=== PATIENT | male | born 2000 | race African-American/Black ===

== ENCOUNTER 2019-05-27 23:39 | Emergency (ER) | payer MEDICAID, OTHER ==
[~2019-05-27] VITALS: Ht 175.3 cm; Wt 70.3 kg
--- NOTE | 2019-05-27 23:50 | NUR ---
PT BIBSELF C/O SOB X1 DAY. +PRODUCTIVE COUGH, YELLOW SPUTUM HX OF ASTHMA, VSS TO ER BED 2 AWAITING MED EVAL
[2019-05-28] MEDS ORDERED: ALBUTEROL FS 2.5 MG/0.5 ML VIAL.NEB NEB ONE
[2019-05-28] MEDS ORDERED: ALBUTEROL FS 2.5 MG/0.5 ML VIAL.NEB ONE (00:06)
--- NOTE | 2019-05-28 00:24 | NUR ---
Patient discharged to home in stable condition. Written and verbal after care instructions given. Patient verbalizes understanding of instruction.
[2019-05-28 00:25] VITALS: BP 131/77
== END 2019-05-28 00:26 | disposition home or self-care (01) ==
LOC: ER 23:44
DX: J45.909 Unspecified asthma, uncomplicated (principal)

== ENCOUNTER 2019-08-27 08:08 | Emergency (ER) | payer MEDICAID ==
[~2019-08-27] VITALS: Ht 175.3 cm; Wt 68.0 kg
[2019-08-27] MEDS ORDERED: IPRATROPIUM NEB FS 0.5 MG/2.5 ML AMPUL.NEB ONE (08:20)
[2019-08-27] MEDS ORDERED: ALBUTEROL FS 2.5 MG/3 ML VIAL.NEB ONE (08:20)
--- NOTE | 2019-08-27 08:20 | NUR ---
patient Flash, from home, c/o sob x 2 hrs, Hx of asthma. On room air, connected to the monitor and pulse ox. kept comfortable, Will continue to monitor accordingly.
[2019-08-27] MEDS ORDERED: predniSONE 20 MG TABLET ONE (08:21)
--- NOTE | 2019-08-27 08:23 | NUR ---
RT at bedside for treatment.
[2019-08-27] MEDS ORDERED: ALBUTEROL FS 2.5 MG/3 ML VIAL.NEB NEB ONE (08:30)
[2019-08-27] MEDS ORDERED: IPRATROPIUM NEB FS 0.5 MG/2.5 ML AMPUL.NEB NEB ONE (08:30)
[2019-08-27] MEDS ORDERED: predniSONE 20 MG TABLET PO ONE (08:30)
[2019-08-27 09:25] VITALS: BP 105/56
--- NOTE | 2019-08-27 09:26 | NUR ---
Patient discharged to home in stable condition. Written and verbal after care instructions given. Patient verbalizes understanding of instruction.
== END 2019-08-27 09:26 | disposition home or self-care (01) ==
LOC: ER 08:15
DX: J45.909 Unspecified asthma, uncomplicated (principal)
CPT/HCPCS: 94640; 99283; J7512

== ENCOUNTER 2020-05-07 06:38 | Emergency (ER) | payer MEDICAID ==
[~2020-05-07] VITALS: Ht 175.3 cm; Wt 72.6 kg
--- NOTE | 2020-05-07 06:41 | NUR ---
BIBS FOR C/O "I THINK I HAVE SINUS INFECTION. MY LEFT EAR IS ITCHY" -H/A, -COUGH, - CONGESTION, - FEVER; pt to bed 6, -sob, nad noted, vss, pending md michael
--- NOTE | 2020-05-07 07:11 | NUR ---
called lab for covid swab
[2020-05-07] MEDS ORDERED: predniSONE 10 MG TABLET ONE (07:17)
[2020-05-07] MEDS ORDERED: predniSONE 20 MG TABLET ONE (07:17)
--- NOTE | 2020-05-07 07:19 | NUR ---
report given to callum chang for poonam
[2020-05-07] MEDS ORDERED: predniSONE 50 MG TABLET PO ONE (07:30)
--- NOTE | 2020-05-07 08:42 | NUR ---
Patient discharged to home in stable condition. Written and verbal after care instructions given. Patient verbalizes understanding of instruction.
[2020-05-07 08:46] VITALS: BP 130/74
== END 2020-05-07 08:47 | disposition home or self-care (01) ==
LOC: ER 06:40
DX: J45.909 Unspecified asthma, uncomplicated (principal); R59.0 Localized enlarged lymph nodes; H61.22 Impacted cerumen, left ear
CPT/HCPCS: 87070; 87880; 99283; C9803; J7512 ×2; U0003; 86403-TC

== ENCOUNTER 2022-09-22 22:19 | Emergency (ER) | payer MEDICAID ==
[~2022-09-22] VITALS: Ht 175.3 cm; Wt 71.7 kg
[2022-09-22] MEDS ORDERED: ALBUTEROL FS 2.5 MG/3 ML VIAL.NEB ONE (22:58)
[2022-09-22] MEDS ORDERED: IPRATROPIUM NEB FS 0.5 MG/2.5 ML AMPUL.NEB ONE (22:58)
[2022-09-22] MEDS ORDERED: predniSONE 20 MG TABLET PO ONE (23:00)
[2022-09-22] MEDS ORDERED: ALBUTEROL FS 2.5 MG/3 ML VIAL.NEB NEB ONE (23:00)
[2022-09-22] MEDS ORDERED: IPRATROPIUM NEB FS 0.5 MG/2.5 ML AMPUL.NEB NEB ONE (23:00)
[2022-09-22] MEDS ORDERED: predniSONE 20 MG TABLET ONE (23:16)
[2022-09-22] MEDS ORDERED: ALBU8.5H8 INH (23:32)
[2022-09-22] MEDS ORDERED: PRED20TA PO (23:32)
--- NOTE | 2022-09-22 23:40 | NUR ---
Patient discharged to home in stable condition. Written and verbal after care instructions given. Patient verbalizes understanding of instruction.
[2022-09-22 23:48] VITALS: BP 134/86
== END 2022-09-22 23:40 | disposition home or self-care (01) ==
LOC: ER 22:21
DX: J45.901 Unspecified asthma with (acute) exacerbation (principal)
CPT/HCPCS: 99285; 94640 ×2; J7512

== ENCOUNTER 2022-10-14 13:14 | Emergency (ER) | payer MEDICAID ==
[~2022-10-14] VITALS: Ht 170.2 cm; Wt 72.6 kg
[~2022-10-14 13:14] MED LIST: ALBU8.5H8 INH; PRED20TA PO
--- NOTE | 2022-10-14 14:00 | NUR ---
Neuro intact. NO obvious distress
[2022-10-14 15:46] VITALS: BP 127/60
--- NOTE | 2022-10-14 15:46 | NUR ---
Patient discharged to home in stable condition. Written and verbal after care instructions given. Patient verbalizes understanding of instruction.
== END 2022-10-14 15:47 | disposition home or self-care (01) ==
LOC: ER 13:21
DX: S24.109A Unspecified injury at unspecified level of thoracic spinal cord, initial encounter (principal); S40.011A Contusion of right shoulder, initial encounter; S09.90XA Unspecified injury of head, initial encounter; J45.909 Unspecified asthma, uncomplicated; Z79.899 Other long term (current) drug therapy; W22.8XXA Striking against or struck by other objects, initial encounter; Y93.89 Activity, other specified; Y92.89 Other specified places as the place of occurrence of the external cause; Y99.8 Other external cause status
CPT/HCPCS: 72074-TC; 73030-TC

== ENCOUNTER 2022-10-19 17:56 | Emergency (ER) | payer MEDICAID ==
[~2022-10-19] VITALS: Ht 175.3 cm; Wt 72.6 kg
--- NOTE | 2022-10-19 18:20 | NUR ---
BIBS C/O BACK PAIN SINCE HE WAS SEEN HER 10/14/2022 AFTER A FALL, X-RAYS DONE WERE NEG FOR FRACTURES. AMBULATORY, PLACED IN BED.
[2022-10-19 18:27] VITALS: BP 114/81
--- NOTE | 2022-10-19 18:53 | NUR ---
PATIENT TAKEN TO XRAY BY JAYLIN VIA WHEELCHAIR
[2022-10-19] MEDS ORDERED: IBUP-1953 PO (19:22)
--- NOTE | 2022-10-19 20:00 | NUR ---
Patient discharged to home in stable condition. Written and verbal after care instructions given. Patient verbalizes understanding of instruction.
== END 2022-10-19 20:01 | disposition home or self-care (01) ==
LOC: ER 17:57
DX: M54.6 Pain in thoracic spine (principal); J45.909 Unspecified asthma, uncomplicated; Z79.899 Other long term (current) drug therapy
CPT/HCPCS: 72110-TC

== ENCOUNTER 2022-12-12 04:41 | Emergency (ER) | payer MEDICAID ==
[~2022-12-12] VITALS: Ht 175.3 cm; Wt 70.8 kg
[~2022-12-12 04:41] MED LIST changes: +IBUP-1953 PO
[2022-12-12 04:53] VITALS: BP 122/59
--- NOTE | 2022-12-12 04:58 | NUR ---
RICARDO FROM HOME C/O "ASTHMA ATTACK" /SOB X1 HR. TOOK ALB PUFF WITH NO RELIEF.
--- NOTE | 2022-12-12 05:03 | NUR ---
DR JOHN GUAMAN AT PT'S BEDSIDE FOR EVAL
[2022-12-12] MEDS ORDERED: predniSONE 20 MG TABLET ONE (05:11)
[2022-12-12] MEDS ORDERED: ALBU8.5H8 INH (05:12)
[2022-12-12] MEDS ORDERED: PRED20TA PO (05:12)
[2022-12-12] MEDS ORDERED: ALBUTEROL FS 2.5 MG/3 ML VIAL.NEB ONE (05:14)
--- NOTE | 2022-12-12 05:14 | NUR ---
RT AT PT'S BEDSIDE FOR BREATHING TX
[2022-12-12] MEDS ORDERED: predniSONE 20 MG TABLET PO ONE (05:30)
[2022-12-12] MEDS ORDERED: ALBUTEROL FS 2.5 MG/3 ML VIAL.NEB CONTNEB ONE (05:30)
== END 2022-12-12 05:58 | disposition home or self-care (01) ==
LOC: ER 04:43
DX: J45.901 Unspecified asthma with (acute) exacerbation (principal); Z79.899 Other long term (current) drug therapy
CPT/HCPCS: 99283; 94640; J7512